=== PATIENT | female | born 1955 | race Two or more races ===

== ENCOUNTER 2024-11-28 14:17 | Emergency (ER) | payer OTHER ==
[~2024-11-28] VITALS: Ht 165.1 cm; Wt 63.5 kg
[2024-11-28 14:22] VITALS: BP 115/68; O2SAT 99
[2024-11-28] MEDS ORDERED: IPRATROPIUM BROMIDE 0.5 MG/2.5 ML AMPUL.NEB IH SCH (16:00)
[2024-11-28] MEDS ORDERED: LEVALBUTEROL HCL 1.25 MG/3 ML SOLUTION IH SCH (16:00)
[2024-11-28] MEDS ORDERED: METHYLPREDNISOLONE SOD SUCC 125 MG VIAL IV ONE (16:00)
[2024-11-28] MEDS ORDERED: GUAIFENESIN/DEXTROMETHORPHAN 10ML BLIST.PACK PO ONE ×2 (16:15→16:29)
[2024-11-28] MEDS ORDERED: METHYLPREDNISOLONE SOD SUCC 125 MG VIAL ONE (16:29)
[2024-11-28 16:59] LABS: HEMATOCRIT 38.6 % (36.0-45.00); HEMOGLOBIN 12.7 g/dL (12.0-15.00); MEAN CELL VOLUME 83.8 fL (80.00-100.00); MEAN CORPUSCULAR HEMOGLOBIN 27.5 pg (27.00-32.0); MEAN CORPUSCULAR HGB CONC 32.8 g/dl (32.0-36.0); PLATELET COUNT 327 K/uL (150-450); RED CELL DISTRIBUTION WIDTH 13.6 % (11.5-14.5)
[2024-11-28 17:25] LABS: CALCIUM 8.5 mg/dL (8.5-10.1); CREATININE SERUM 0.66 mg/dL (0.55-1.02); GFR 88.8; POTASSIUM 3.41 mEq/L (3.5-5.1)
[2024-11-28] MEDS ORDERED: IPRATROPIUM BROMIDE 0.5 MG/2.5 ML AMPUL.NEB IH ONE (18:16)
[2024-11-28] MEDS ORDERED: LEVALBUTEROL HCL 1.25 MG/3 ML SOLUTION IH ONE (18:16)
[2024-11-28 18:58] LABS: ABG PH 7.445 (7.35-7.45); ABG PO2 67.5 mmHg (80-100); BASE EXCESS 1.1 mmol/l; BICARBONATE 24.8 mmol/l (23-25); SaO2 94.1 %; allen test SATISFACTORY; o2 21 %
[2024-11-28] MEDS ORDERED: ZITHROMAX500 MG PO (19:49)
[2024-11-28] MEDS ORDERED: IPRATROPIU0.2 MG/1 M IH (19:49)
[2024-11-28] MEDS ORDERED: MEDROLPACK PO (19:49)
[2024-11-28] MEDS ORDERED: TUSSIN DM LIQU118 ML PO (19:49)
[2024-11-28] MEDS ORDERED: XOPENEX CO1.25 MG/0. IH (19:49)
[2024-11-28] MEDS ORDERED: SINGULAIR10 MG PO (19:49)
[2024-11-28 20:05] LABS: puncture site RADIAL LEFT
== END 2024-11-28 20:36 | disposition home or self-care (01) ==
LOC: ER 14:19
PROVIDERS: General Practice
DX: J42 Unspecified chronic bronchitis (principal); Z20.822 Contact with and (suspected) exposure to COVID-19; Z87.09 Personal history of other diseases of the respiratory system; K44.9 Diaphragmatic hernia without obstruction or gangrene

== ENCOUNTER → 2025-03-10 | Emergency (ER) | payer OTHER ==
[~2025-03-10] VITALS: Ht 165.1 cm; Wt 67.6 kg
[~2025-03-10] MED LIST: CETIRIZINE HCL 5 MG/5 ML ML PO ONE; CETIRIZINE HCL 5MG/5ML BLIST.PACK PO ONE; GUAIFENESIN/DEXTROMETHORPHAN 100MG/10ML BLIST.PACK PO ONE; IPRATROPIU0.2 MG/1 M IH; IPRATROPIUM BROMIDE 0.5 MG/2.5 ML AMPUL.NEB IH SCH; LEVALBUTEROL HCL 1.25 MG/3 ML SOLUTION IH SCH; MEDROLPACK PO; METHYLPREDNISOLONE SOD SUCC 125 MG VIAL IV ONE; METHYLPREDNISOLONE SOD SUCC 125 MG VIAL ONE; SINGULAIR10 MG PO; TUSSIN DM LIQU118 ML PO; XOPENEX CO1.25 MG/0. IH; ZITHROMAX500 MG PO
[2025-03-10 19:28] LABS: HEMATOCRIT 40.2 % (36.0-45.00); HEMOGLOBIN 13.3 g/dL (12.0-15.00); MEAN CELL VOLUME 84.2 fL (80.00-100.00); MEAN CORPUSCULAR HEMOGLOBIN 27.9 pg (27.00-32.0); MEAN CORPUSCULAR HGB CONC 33.2 g/dl (32.0-36.0); PLATELET COUNT 244 K/uL (150-450); RED BLOOD COUNT 4.77 M/uL (4.00-6.00); RED CELL DISTRIBUTION WIDTH 14.5 % (11.5-14.5)
[2025-03-10 19:58] LABS: INFLUENZA A AG NEGATIVE (NEGATIVE)
[2025-03-10 20:13] LABS: COVID-19 AG NEGATIVE (NEGATIVE)
== END | disposition left against medical advice (07) ==
LOC: ER 17:32
PROVIDERS: General Practice
DX: J00 Acute nasopharyngitis [common cold] (principal); R53.81 Other malaise; Z20.822 Contact with and (suspected) exposure to COVID-19

== ENCOUNTER → 2025-03-11 | Emergency (ER) | payer OTHER ==
[~2025-03-11] VITALS: Ht 165.1 cm; Wt 63.5 kg
[~2025-03-11] MED LIST changes: -CETIRIZINE HCL 5 MG/5 ML ML PO ONE; -CETIRIZINE HCL 5MG/5ML BLIST.PACK PO ONE; -GUAIFENESIN/DEXTROMETHORPHAN 100MG/10ML BLIST.PACK PO ONE; -IPRATROPIUM BROMIDE 0.5 MG/2.5 ML AMPUL.NEB IH SCH; -LEVALBUTEROL HCL 1.25 MG/3 ML SOLUTION IH SCH; -METHYLPREDNISOLONE SOD SUCC 125 MG VIAL IV ONE; -METHYLPREDNISOLONE SOD SUCC 125 MG VIAL ONE
== END | disposition home or self-care (01) ==
LOC: ER 10:04
DX: J40 Bronchitis, not specified as acute or chronic (principal); Z87.09 Personal history of other diseases of the respiratory system